=== PATIENT | female | born 1980 | race American Indian/Alaskan Native ===

== ENCOUNTER 2018-01-19 15:21 | Emergency (ER) | payer BC ==
[2018-01-19 15:29] VITALS: BP 121/59
[2018-01-19] MEDS ORDERED: TORADOL PO ONE (17:21)
[2018-01-19] MEDS ORDERED: MOTRIN PO ONE ×3 (17:26→17:47)
--- NOTE | 2018-01-19 17:55 | Emergency Department Report ---
Upper Extremity - HPI Chief Complaint: Extremity Injury, Upper Stated Complaint: LEFT SHOULDER PAIN/JOINT PAIN Time Seen by Provider: 01/19/18 17:16 Upper Extremity: Left Shoulder Occurred When: 1 Day Mechanism: Other (developed pain to shoulder before going to bed and unsure of mechanism. feels similar to previous rotator cuff pathology pain. ) Symptoms: Yes Pain with Movement, No Deformity, No Limited Range of Movement, No Numbness, No Weakness, No Swelling, No Bruising/Ecchymosis, No Laceration or Abrasion ED Review of Systems ROS: Stated complaint: LEFT SHOULDER PAIN/JOINT PAIN Other details as noted in HPI Constitutional: denies: chills, fever Eyes: denies: eye pain, eye discharge, vision change ENT: denies: ear pain, throat pain Respiratory: denies: cough, shortness of breath, wheezing Cardiovascular: denies: chest pain, palpitations Endocrine: no symptoms reported Gastrointestinal: denies: abdominal pain, nausea, diarrhea Genitourinary: denies: urgency, dysuria, discharge Musculoskeletal: arthralgia, myalgia. denies: back pain, joint swelling Skin: denies: rash, lesions Neurological: denies: headache, weakness, paresthesias Psychiatric: denies: anxiety, depression Hematological/Lymphatic: denies: easy bleeding, easy bruising ED Past Medical Hx - Past Medical History Previous Medical History?: No - Surgical History Past Surgical History?: Yes Hx Appendectomy: Yes - Social History Smoking Status: Never Smoker Substance Use Type: None - Medications Home Medications: Home Medications Medication Instructions Recorded Confirmed Last Taken Type Ketorolac [Toradol] 10 mg PO Q6H PRN #15 tablet 01/19/18 Unknown Rx Upper Extremity Exam - Exam General: Vital signs noted. No distress. Alert and acting appropriately. Head and Torso: Yes Neck Tenderness (left trapezius spasm and tender to palpation. No lad or cellulitis. no crepitus. 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), Yes Normal Range of Motion in Shoulder, No Clavicle Tenderness, No Shoulder Deformity, No AC Joint Tenderness Arm Exam: No Arm/Humerus Tenderness, No Arm Deformity Elbow: No Elbow Tenderness, No Normal Range of Motion in Elbow, No Elbow Deformity Forearm: No Forearm Tenderness, No Forearm Deformity, No Pain with Pronation, No Pain with Supination Wrist: Yes Normal ROM in Wrist, No Wrist Tenderness, No Wrist Deformity, No Snuffbox Tenderness, No Pain with Axial Thumb Compression Hand: Yes Normal ROM in Digit(s), No Hand Tenderness, No Hand Deformity, No Digit Tenderness, No Digit(s) Deformity, No Tendon Dysfunction CMS Exam: No Broken Skin, No Normal Distal Pulses, No Normal Capillary Refill, No Normal Distal Sensation ED Course Vital Signs 01/19/18 15:25 Temperature 98.7 F Pulse Rate 83 Respiratory 18 Rate Blood Pressure 121/59 O2 Sat by Pulse 99 Oximetry Critical care attestation.: If time is entered above; I have spent that time in minutes in the direct care of this critically ill patient, excluding procedure time. ED Disposition Clinical Impression: Trapezius muscle spasm, Arthralgia of left shoulder region Disposition: - TO HOME OR SELFCARE Is pt being admited?: No Condition: Stable Prescriptions: Ketorolac [Toradol] 10 mg PO Q6H PRN #15 tablet PRN Reason: Pain Referrals: MELISSA CLANCY MD [Primary Care Provider] - 3-5 Days LARRY VERDUZCO MD [Staff Physician] - 3-5 Days
--- NOTE | 2018-01-19 18:25 | XRay Report ---
FINAL REPORT EXAM: XR SHOULDER 2+V LT HISTORY: left shoulder pain TECHNIQUE: 3 views of the left shoulder PRIORS: None. FINDINGS: The glenohumeral and acromioclavicular joints are normally aligned. The bones are normally mineralized. The soft tissues are unremarkable. IMPRESSION: Normal left shoulder.
[2018-01-19] MEDS ORDERED: NORCO 5/325 PO ONE (18:46)
== END 2018-01-19 19:05 | disposition home or self-care (01) ==
LOC: ED 15:21
DX: M25.512 Pain in left shoulder (principal); M62.838 Other muscle spasm; Z90.49 Acquired absence of other specified parts of digestive tract
CPT/HCPCS: 93005; 93010